=== PATIENT | male | born 1960 | race Caucasian/White ===

== ENCOUNTER → 2017-12-22 | Emergency (ER) | payer OTHER ==
[~2017-12-22] VITALS: Ht 165.1 cm; Wt 77.1 kg
[2017-12-22 10:18] VITALS: BP 150/105
--- NOTE | 2017-12-22 10:57 | PHYS DOC ---
Past History Past Medical History: Hypertension Past Surgical History: Other Alcohol Use: None Drug Use: None Adult General Chief Complaint Chief Complaint: BACK INJURY HPI HPI 57-year-old male presents with mid back pain. This pain started 4 days ago and he describes in his cramping. The pain is not worse with movement. It is better when he is sitting up. He has the most pain when he lays down in any position and when he coughs. He has not had a frequent cough. He denies trauma or overuse injury. He has had more frequent urination, but denies hematuria. No history of kidney stones. He denies fever, chills, chest pain or shortness of breath. Review of Systems Review of Systems Constitutional: Denies fever or chills [] Eyes: Denies change in visual acuity, redness, or eye pain [] HENT: Denies nasal congestion or sore throat [] Respiratory: Denies cough or shortness of breath [] Cardiovascular: No additional information not addressed in HPI [] GI: Denies abdominal pain, nausea, vomiting, bloody stools or diarrhea [] : Denies dysuria or hematuria [] Musculoskeletal: back pain[] Integument: Denies rash or skin lesions [] Neurologic: Denies headache, focal weakness or sensory changes [] Endocrine: Denies polyuria or polydipsia [] All other systems were reviewed and found to be within normal limits, except as documented in this note. Physical Exam Physical Exam Constitutional: Well developed, well nourished, no acute distress, non-toxic appearance. [] HENT: Normocephalic, atraumatic, bilateral external ears normal, oropharynx moist, no oral exudates, nose normal. [] Eyes: PERRLA, EOMI, conjunctiva normal, no discharge. [] Neck: Normal range of motion, no tenderness, supple, no stridor. [] Cardiovascular:Heart rate regular rhythm, no murmur [] Lungs & Thorax: Bilateral breath sounds clear to auscultation [] Abdomen: Bowel sounds normal, soft, no tenderness, no masses, no pulsatile masses. [] Skin: Warm, dry, no erythema, no rash. skin tag on back around T12 [] Back: No tenderness, no CVA tenderness. No bone pain or stepoffs. No pain with ROM. [] Extremities: No tenderness, no cyanosis, no clubbing, ROM intact, no edema. [] Neurologic: Alert and oriented X 3, normal motor function, normal sensory function, no focal deficits noted. [] Psychologic: Affect normal, judgement normal, mood normal. [] Current Patient Data Vital Signs Vital Signs Date Time Temp Pulse Resp B/P (MAP) Pulse Ox O2 Delivery O2 Flow Rate FiO2 12/22/17 10:18 97.9 79 16 99 Room Air EKG EKG [] Radiology/Procedures Radiology/Procedures CHEST PA LATERAL Clinical indications: cough with back pain x 2 days COMPARISON: None available. Findings: Linear atelectasis or scarring of the right lung base is seen. No lung consolidation or pleural effusion or pulmonary edema or lung mass or pneumothorax is seen. The heart size, pulmonary vasculature, mediastinum and both melva are unremarkable. The osseous structures appear intact. Impression: Mild linear atelectasis or scarring of the right lung base. No consolidative pneumonia. Electronically signed by: Bismark Roman MD (12/22/2017 11:31 AM) [facility][] Course & Med Decision Making Course & Med Decision Making Pertinent Labs and Imaging studies reviewed. (See chart for details) The patient's chest x-ray shows possible linear atelectasis in the right lung base. Does not look like pneumonia. The patient does not have a fever or significant cough. His urinalysis was negative. At this time, I'm assuming that the patient is either having musculoskeletal pain or possibly irritation of the lung from his atelectasis. I believe it will resolve on its own. I have advised that he use ibuprofen. The patient did admit to me that it is feeling better than it did 2 days ago. [] Dragon Disclaimer Dragon Disclaimer This electronic medical record was generated, in whole or in part, using a voice recognition dictation system. Departure Departure: Referrals: NEO LERMA (PCP) DENYS DESAI DO Dec 22, 2017 10:57
[2017-12-22 11:18] LABS: BACTERIA,URINE 0 /HPF (0-FEW); BILIRUBIN,URINE NEG (NEG); CLARITY,URINE CLEAR; COLOR,URINE YELLOW; GLUCOSE,URINE NEG (NEG); NITRITE,URINE NEG (NEG); RBC,URINE 0 /HPF (0-2); UROBILINOGEN,URINE 1 mg/dL (0.2 mg/dL); WBC,URINE 0 /HPF (0-4)
--- NOTE | 2017-12-22 11:34 | RAD ---
CHEST PA LATERAL Clinical indications: cough with back pain x 2 days COMPARISON: None available. Findings: Linear atelectasis or scarring of the right lung base is seen. No lung consolidation or pleural effusion or pulmonary edema or lung mass or pneumothorax is seen. The heart size, pulmonary vasculature, mediastinum and both melva are unremarkable. The osseous structures appear intact. Impression: Mild linear atelectasis or scarring of the right lung base. No consolidative pneumonia. Electronically signed by: Bismark Roman MD (12/22/2017 11:31 AM) [facility]
== END ==
LOC: ER 10:13
DX: M54.9 Dorsalgia, unspecified (principal); I10 Essential (primary) hypertension
CPT/HCPCS: 71046; 81001; 99285

== ENCOUNTER 2019-07-04 10:27 | Emergency (ER) | payer OTHER ==
[~2019-07-04] VITALS: Ht 165.1 cm; Wt 75.7 kg
[2019-07-04 11:03] VITALS: BP 169/101
[2019-07-04] MEDS ORDERED: ASPI325T8 PO (11:31)
[2019-07-04] MEDS ORDERED: MELO7.5T29 PO (11:31)
--- NOTE | 2019-07-04 11:31 | PHYS DOC ---
Past History Past Medical History: No Pertinent History Past Surgical History: No Surgical History Smoking: Cigar Alcohol Use: Occasionally Drug Use: None Adult General Chief Complaint Chief Complaint: LOWER EXT PAIN HPI HPI Patient is a 58-year-old male presents complaining of right leg pain, all the way around. It was noted on waking this morning. No pain medicine was taken. No trauma. No swelling. No redness. Increased pain with movement. Patient reports it was severe, and has significantly improved at this time. No loss of bowel or bladder control. No history of back pain or injury. No recent changes in weight. No fever.[] Review of Systems Review of Systems Constitutional: Denies fever or chills [] Eyes: Denies change in visual acuity, redness, or eye pain [] HENT: Denies nasal congestion or sore throat [] Respiratory: Denies cough or shortness of breath [] Cardiovascular: No Chest pain or palpitations[] GI: Denies abdominal pain, nausea, vomiting, bloody stools or diarrhea [] : Denies dysuria or hematuria [] Musculoskeletal: The history of present illness[] Integument: Denies rash or skin lesions [] Neurologic: Denies headache, focal weakness or sensory changes [] Endocrine: Denies polyuria or polydipsia [] All other systems were reviewed and found to be within normal limits, except as documented in this note. Allergies Allergies Allergies Coded Allergies Type Severity Reaction Last Updated Verified No Known Drug Allergies 07/04/19 No Physical Exam Physical Exam Constitutional: Well developed, well nourished, no acute distress, non-toxic appearance. [] HENT: Normocephalic, atraumatic, bilateral external ears normal, oropharynx moist, no oral exudates, nose normal. [] Eyes: PERRLA, EOMI, conjunctiva normal, no discharge. [] Neck: Normal range of motion, no tenderness, supple, no stridor. [] Cardiovascular:Heart rate regular rhythm, no murmur [] Lungs & Thorax: Bilateral breath sounds clear to auscultation [] Abdomen: Bowel sounds normal, soft, no tenderness, no masses, no pulsatile masses. [] Skin: Warm, dry, no erythema, no rash. [] Back: No tenderness, no CVA tenderness. No sciatic tenderness[] Extremities: No tenderness, no cyanosis, clubbing is present bilaterally, dorsalis pedis and posterior tibial pulses are present., ROM intact, no edema. Normal gait[] Neurologic: Alert and oriented X 3, normal motor function, normal sensory function, no focal deficits noted. [] Psychologic: Affect normal, judgement normal, mood normal. [] Current Patient Data Vital Signs Vital Signs Date Time Temp Pulse Resp B/P (MAP) Pulse Ox O2 Delivery O2 Flow Rate FiO2 07/04/19 11:03 77 18 97 Room Air EKG EKG [] Radiology/Procedures Radiology/Procedures [] Course & Med Decision Making Course & Med Decision Making Pertinent Labs and Imaging studies reviewed. (See chart for details) ED course: Patient arrived, was placed in bed, and tolerated exam well. Findings and plan were discussed with the patient. All questions were answered. He was discharged in improved condition. Medical decision making: Patient with leg pain that is improving. Concerned about possibility of intermittent claudication given the clubbing noted on his fingernails and toenails. There is no evidence of a DVT. No evidence of an art erial thrombus at this time. No evidence of stroke syndrome. No evidence of back/sciatic issues.[] Dragon Disclaimer Dragon Disclaimer This electronic medical record was generated, in whole or in part, using a voice recognition dictation system. Departure Departure: Impression: Primary Impression: Pain of right lower extremity Disposition: 01 HOME, SELF-CARE Condition: IMPROVED Referrals: NEO LERMA (PCP) Follow-up in 2 days Patient Instructions: Intermittent Claudication, Pain of Unknown Etiology (Pain without a known Cause), Smoking Cessation Additional Instructions: Follow-up with your regular doctor in 2 days. Stop smoking! Taken aspirin a day. Take the pain medicine as needed. Return to the ER if worsening pain, weakness, or any other concerns. Scripts Meloxicam (MELOXICAM) 7.5 Mg Tablet 7.5 MG PO DAILY for PAIN, #20 TAB Prov: ML CHAMPION DO 07/04/19 Aspirin (ASPIRIN) 325 Mg Tablet 1 TAB PO DAILY for intermittant claudication, #30 TAB Prov: ML CHAMPION DO 07/04/19 ML CHAMPION DO Jul 04, 2019 11:31
== END 2019-07-04 11:43 | disposition home or self-care (01) ==
LOC: ER 10:27
DX: M79.604 Pain in right leg (principal); F17.210 Nicotine dependence, cigarettes, uncomplicated
CPT/HCPCS: 99283

== ENCOUNTER → 2019-07-06 | Outpatient (CLI) | payer BC, OTHER ==
[2019-07-04 11:03] VITALS: BP 169/101
[~2019-07-06] MED LIST: ASPI325T8 PO; MELO7.5T29 PO
--- NOTE | 2019-07-06 11:51 | RAD ---
EXAM: Right lower extremity venous Doppler sonogram. HISTORY: Pain and swelling. TECHNIQUE: Calvin scale and color Doppler sonographic evaluation of the right lower extremity veins with spectral waveform analysis was performed. FINDINGS: There is normal color flow, normal compressibility and there are normal spectral waveforms in the common femoral, superficial femoral, popliteal, posterior tibial and greater saphenous veins. IMPRESSION: No Doppler evidence of lower extremity deep venous thrombosis. Electronically signed by: Ashley Pierce MD (07/06/2019 11:48 AM) [place] [id number]
== END | disposition home or self-care (01) ==
LOC: US 11:13
PROVIDERS: ATTEND Physician Assistant Medical
DX: M79.604 Pain in right leg (principal); M79.89 Other specified soft tissue disorders
CPT/HCPCS: 93971

== ENCOUNTER → 2019-07-07 | Outpatient (CLI) | payer BC ==
[2019-07-04 11:03] VITALS: BP 169/101
--- NOTE | 2019-07-07 15:12 | RAD ---
EXAM: 1. Lumbar spine 6 views. 2. Frontal pelvis with two-view right hip. HISTORY: Low back and right hip. COMPARISON: None. FINDINGS: There is slight grade 1 anterolisthesis at L5-S1. There is a right L5 pars interarticularis defect. A pars defect is not clearly identified on the left. Slight retrolisthesis at L4-5 measures 3 mm. A vacuum disc phenomenon at L5-S1 indicates mild degenerative disc disease. Other disc heights are maintained. No fractures are identified. There are changes of internal fixation of a chronic healed left femoral diaphyseal fracture with an intramedullary nail. Superolateral femoral head/neck offset is mildly decreased on the left greater than right. It is moderately decreased anteriorly on the right. The joint spaces of both hips are maintained. No fractures are appreciated within the pelvis or right hip. IMPRESSION: 1. Grade 1 anterolisthesis at L5-S1 secondary to at least a right L5 pars interarticularis defect. There is mild degenerative disc disease at this level. 2. Mildly to moderately decreased femoral head/neck offset bilaterally. Correlate for femoroacetabular impingement. Electronically signed by: Giovanna Joe MD (07/07/2019 3:09 PM) [facility]
== END | disposition home or self-care (01) ==
LOC: DXRAD 14:03
PROVIDERS: ATTEND Physician Assistant Medical
DX: M43.17 Spondylolisthesis, lumbosacral region (principal); M51.37 Other intervertebral disc degeneration, lumbosacral region
CPT/HCPCS: 72110; 73502

== ENCOUNTER → 2020-05-27 | Outpatient (CLI) | payer BC, OTHER | LOC: LAB 07:36 | PROVIDERS: ATTEND Nurse Anesthetist, Certified Registered | DX: Z01.812 Encounter for preprocedural laboratory examination (principal); Z20.828 Contact with and (suspected) exposure to other viral communicable diseases | CPT/HCPCS: U0003 ==

== ENCOUNTER → 2020-05-31 | Day surgery (SDC) | payer BC, OTHER ==
[~2020-05-31] MED LIST changes: +BUPIVACAINE-EPI 0.25%-1:200000 MPF 30 ML VIAL. INJ ONE; +BUPIVACAINE-EPI 0.25%-1:200000 MPF 30 ML VIAL. ONE
--- NOTE | 2020-05-31 10:58 | PDOC4 ---
Operative Report DATE 1109 at 1056 Preop Diagnosis Right forehead mass Post-op Diagnosis Same Operation Performed Excision of right forehead mass Patient is 59-year-old male with right forehead mass procedure of excision of mass was explained to the patient detail was benefits were also discussed occluding bleeding infection alternatives to this procedure also discussed with the patient who seemed to understand and gave both verbal and written consent to have the procedure performed. Patient was taken to the minors room placed in the supine position his right forehead was prepped with ChloraPrep area over the mass was injected with quarter percent Marcaine with epinephrine once this was anesthetized incision was made 15 blade scalpel this carried down through the subcutaneous tissue using electrocautery to provide hemostasis the mass was excised sharply with Metzenbaum scissors and sent for pathology. The mass size approximately 3 x 3 cm. The wound was then closed in a single layer 4-0 subcuticular Monocryl Mastisol Steri-Strips and island dressings were applied. Patient tolerated procedure well was discharged home in stable condition all sponge instrument needle counts listed as correct estimated blood loss 15 mL Surgeon David ANESTHESIA PROPOSED: LOCAL Blood Loss 15 mL Specimen Right forehead mass Complications None WATSON HELLER MD May 31, 2020 10:58
--- NOTE | 2020-05-31 11:00 | DISCH ---
DISCHARGE INSTRUCTIONS-DC Condition on Discharge Condition on Discharge: Stable Activity after Discharge Activity Instructions for Disc: No restrictions Other activity instructions: May shower in 24 hours Diet after Discharge Diet after Discharge: Regular Contacting the [facility] after DC Call your doctor for: If your condition worsens Follow-Up Follow up with: Dr. Heller in 2 weeks WATSON HELLER MD May 31, 2020 11:00
[2020-05-31 11:08] VITALS: BP 160/90
--- NOTE | 2020-06-03 18:13 | PATHOLOGY ---
[facility] Accession Number: [id number] . 01 Material submitted: . forehead - MASS RIGHT FOREHEAD. Modifiers: right . 02 Diagnosis: Fibroadipose and skeletal muscle tissue, right forehead mass excision: - Lipoma. ([facility] 06/03/2020) [facility] 06/03/2020 1517 Local . 02 Comment: There is no evidence of malignancy. ([facility] 06/03/2020) . 02 Electronically signed: . Roger Urena MD, Pathologist NPI- [id number] . 01 Gross description: . Received in formalin labeled "Beck Conley, mass right forehead" is a yellow-hughes lobulated soft tissue mass measuring 3.2 x 2.5 x 1.7 cm. The external surface is inked black. The specimen is sectioned to reveal a hughes-yellow homogeneous cut surface without hemorrhage or necrosis. Insurance Clerk tissue is submitted in cassettes A1-A2. ([facility] [place]; 06/02/2020) [facility] 06/[facility]2020 1201 Local . 02 Pathologist provided ICD-10: D17.39 . 02 CPT . 622126 Specimen Comment: A courtesy copy of this report has been sent to [phone], [phone] Specimen Comment: [id number] Specimen Comment: Report sent to / DR LERMA Performed at: 01 [facility] [address], [place] [id number] MD Beck Sanchez MD Phone: [phone] Performed at: 02 [facility] [address] [place], [place] [id number] MD Roger Urena MD Phone: [phone]
== END | disposition home or self-care (01) ==
LOC: SURG 09:23
PROVIDERS: ATTEND Surgery
DX: R22.0 Localized swelling, mass and lump, head (principal); D17.0 Benign lipomatous neoplasm of skin and subcutaneous tissue of head, face and neck; I10 Essential (primary) hypertension; F17.210 Nicotine dependence, cigarettes, uncomplicated; Z79.899 Other long term (current) drug therapy
CPT/HCPCS: 21012; J3490

== ENCOUNTER 2021-01-01 09:37 | Emergency (ER) | payer BC, OTHER ==
[2020-05-31 11:08] VITALS: BP 160/90
[~2021-01-01] VITALS: Ht 167.6 cm; Wt 75.0 kg
[~2021-01-01 09:37] MED LIST changes: -BUPIVACAINE-EPI 0.25%-1:200000 MPF 30 ML VIAL. INJ ONE; -BUPIVACAINE-EPI 0.25%-1:200000 MPF 30 ML VIAL. ONE
--- NOTE | 2021-01-01 09:56 | PHYS DOC ---
Past History Past Medical History: No Pertinent History Past Surgical History: No Surgical History Smoking: Cigarettes, Cigar Alcohol Use: Occasionally Drug Use: None Adult General Chief Complaint Chief Complaint: COUGH HPI HPI Patient is a [age] year old [sex] who presents with [] Smoker. 1 week of URI-like symptoms. Reports moved to chest. Past 72 hours increased shortness of breath, sputum production and quantity Review of Systems Review of Systems Fourteen body systems of review of systems have been reviewed. See HPI for pertinent positives and negative responses, other nguyen all other systems are negative, non-pertinent or non-contributory Allergies Allergies Allergies Coded Allergies Type Severity Reaction Last Updated Verified No Known Drug Allergies 07/04/19 No Physical Exam Physical Exam Constitutional: Well developed, well nourished, no acute distress, non-toxic appearance. HENT: Normocephalic, atraumatic, bilateral external ears normal, oropharynx moist, no oral exudates, nose normal. Eyes: PERRLA, EOMI, conjunctiva normal, no discharge. Neck: Normal range of motion, no tenderness, supple, no stridor. Cardiovascular: Heart rate regular, sinus rhythm, no murmurs rubs or gallops Lungs & Thorax: Bilateral breath sounds clear to auscultation Abdomen: Bowel sounds normal, soft, no tenderness, no masses, no pulsatile masses. Nonsurgical abdomen, no peritoneal signs Skin: Warm, dry, no erythema, no rash. Back: No tenderness, no CVA tenderness. Extremities: No tenderness, no cyanosis, no clubbing, ROM intact, no edema. Neurologic: Alert and oriented X 3, grossly normal motor & sensory function, no focal deficits noted. Psychologic: Affect normal, judgement normal, mood normal. Current Patient Data Vital Signs Vital Signs Date Time Temp Pulse Resp B/P (MAP) Pulse Ox O2 Delivery O2 Flow Rate FiO2 01/01/21 10:01 97.9 83 20 96 Room Air Vital Signs Date Time Temp Pulse Resp B/P (MAP) Pulse Ox O2 Delivery O2 Flow Rate FiO2 01/01/21 10:01 97.9 83 20 96 Room Air Lab Results Current Medications Medications (Trade) Dose Ordered Sig/Violeta Route PRN Reason Start Time Stop Time Status Last Admin Dose Admin Prednisone (Prednisone) 60 mg 1X ONCE PO 01/01/21 10:45 01/01/21 10:39 DC Doxycycline Hyclate (Vibra-Tab) 100 mg 1X ONCE PO 01/01/21 10:45 01/01/21 10:39 DC EKG EKG [] Radiology/Procedures Radiology/Procedures [] Heart Score Risk Factors: Risk Factors: DM, Current or recent (<one month) smoker, HTN, HLP, family history of CAD, obesity. Risk Scores: Risk Factors: DM, Current or recent (<one month) smoker, HTN, HLP, family history of CAD, obesity. Course & Med Decision Making Course & Med Decision Making Pertinent Labs and Imaging studies reviewed. (See chart for details) [] Dragon Disclaimer Dragon Disclaimer This electronic medical record was generated, in whole or in part, using a voice recognition dictation system. Departure Departure: Impression: Primary Impression: Bronchitis Additional Impression: URI (upper respiratory infection) Disposition: HOME / SELF CARE / HOMELESS Condition: STABLE Referrals: NEO LERMA (PCP) Patient Instructions: Acute Bronchitis Additional Instructions: You were seen for a bronchitis and upper respiratory tract infection. Please start taking an antihistamine such as Zyrtec or Claritin in addition to a nasal spray such as Flonase for symptom control and if prescribed any medications during your ED visit today, take them as prescribed until completion or your primary doctor changes your medications. It will be important that you follow up with your primary doctor and if needed, a tire assembler after this ED visit. Return to the ED if you develop worsening cough, shortness of breath, fever > 101, chest pain, or any other new or concerning symptoms. Scripts Prednisone (PREDNISONE) 20 Mg Tablet 40 MG PO DAILY for bronchitis for 4 Days, #8 TAB Prov: JESÚS LEMOS DO 01/01/21 Doxycycline Hyclate (DOXYCYCLINE HYCLATE) 100 Mg Tablet 1 TAB PO BID for BRONCHITIS for 7 Days, #13 TAB Prov: JESÚS LEMOS DO 01/01/21 Problem Qualifiers JESÚS LEMOS DO Jan 01, 2021 09:56
[2021-01-01] MEDS ORDERED: DOXY100T PO (10:34)
[2021-01-01] MEDS ORDERED: PRED20TA PO (10:35)
[2021-01-01] MEDS ORDERED: predniSONE 20 MG TABLET PO ONE (10:45)
[2021-01-01] MEDS ORDERED: DOXYCYCLINE HYCLATE 100 MG TABLET PO ONE (10:45)
== END 2021-01-01 10:36 | disposition home or self-care (01) ==
LOC: ER 09:37
DX: J40 Bronchitis, not specified as acute or chronic (principal); J06.9 Acute upper respiratory infection, unspecified; F17.210 Nicotine dependence, cigarettes, uncomplicated
CPT/HCPCS: 99283-25